=== PATIENT | male | born 1995 | race African-American/Black ===

== ENCOUNTER 2019-05-01 14:38 | Emergency (ER) | payer MEDICAID, OTHER ==
[~2019-05-01] VITALS: Ht 172.7 cm; Wt 70.0 kg
[~2019-05-01 14:38] MED LIST: CIPR-263; NONE REPORTED; PROIN3; QUET150T2
[2019-05-01 21:05] VITALS: BP 110/82
== END 2019-05-01 21:06 | disposition home or self-care (01) ==
LOC: ER 14:38
DX: J11.1 Influenza due to unidentified influenza virus with other respiratory manifestations (principal); R50.9 Fever, unspecified; J45.909 Unspecified asthma, uncomplicated
CPT/HCPCS: 99283

== ENCOUNTER 2020-01-11 07:57 | Emergency (ER) | payer MEDICAID ==
[~2020-01-11] VITALS: Ht 165.1 cm; Wt 57.0 kg
[2020-01-11] MEDS ORDERED: PIPERACILLIN/TAZ 3.375G PREMIX 50 ML IV ONE (08:45)
[2020-01-11] MEDS ORDERED: SODIUM CHLORIDE 0.9% 1,000 ML IV ONE (09:15)
[2020-01-11 09:32] LABS: BASOPHILS % 0.8 % (0.0-2.0); EOSINOPHILS % 3.6 % (0.0-5.0); HEMATOCRIT. 44.5 % (42.0-52.0); LYMPHOCYTES % 20.9 % (20.0-50.0); MEAN CORPUSCULAR HEMOGLOBIN 28.7 pg (28.0-32.0); MEAN CORPUSCULAR VOLUME 85.3 fL (80.0-94.0); MEAN PLATELET VOLUME 6.9 fl (7.4-10.4); MONOCYTES % 8.7 % (2.0-8.0); PLATELET 321 x1000/uL (130-400); RED BLOOD CELL COUNT 5.22 mill/uL (4.7-6.1); RED CELL DISTRIBUTION WIDTH 13.5 % (11.6-14.6)
[2020-01-11 09:40] LABS: CHLORIDE 106 mEq/L (98-107)
[2020-01-11] MEDS ORDERED: ACETAMINOPHEN 325MG TABLET PO ONE (09:45)
[2020-01-11] MEDS ORDERED: IOHEXOL-300 100 ML BOTTLE ONE (10:35)
[2020-01-11 16:09] VITALS: BP 120/85
== END 2020-01-11 16:36 | disposition short-term general hospital (02) ==
LOC: ER 08:17
DX: H60.02 Abscess of left external ear (principal); F12.10 Cannabis abuse, uncomplicated; F15.10 Other stimulant abuse, uncomplicated; H92.02 Otalgia, left ear; L53.9 Erythematous condition, unspecified; F11.10 Opioid abuse, uncomplicated; Z79.899 Other long term (current) drug therapy
CPT/HCPCS: 36415; 70481; 80053; 85025; 96365; 99285; J2543; J7030; Q9967

== ENCOUNTER 2020-01-28 19:51 | Emergency (ER) | payer MEDICAID ==
[~2020-01-28] VITALS: Ht 172.7 cm; Wt 60.0 kg
[2020-01-28 19:54] VITALS: BP 111/69
== END 2020-01-28 20:51 | disposition left against medical advice (07) ==
LOC: ER 19:51
DX: H61.002 Unspecified perichondritis of left external ear (principal); J45.909 Unspecified asthma, uncomplicated
CPT/HCPCS: 99281

== ENCOUNTER 2023-06-30 12:20 | Emergency (ER) | payer MEDICAID ==
[~2023-06-30] VITALS: Ht 170.2 cm; Wt 64.4 kg
[2023-06-30 12:29] VITALS: O2SAT 100
[2023-06-30] MEDS ORDERED: AMOX1TAB16 MT (14:05)
[2023-06-30 15:16] VITALS: BP 112/64; PULSE 78; RESP 14; TEMP 98
== END 2023-06-30 15:20 | disposition home or self-care (01) ==
LOC: ER 12:31
DX: J32.9 Chronic sinusitis, unspecified (principal)
CPT/HCPCS: 71045; 99283

== ENCOUNTER 2023-07-28 08:46 | Emergency (ER) | payer MEDICAID ==
[~2023-07-28] VITALS: Ht 167.6 cm; Wt 60.0 kg
[~2023-07-28 08:46] MED LIST changes: +AMOX1TAB16 MT
[2023-07-28 09:04] VITALS: BP 120/69; PULSE 94; RESP 16; TEMP 98.2; O2SAT 98
[2023-07-28 09:43] LABS: BASOPHILS % 0.7 % (0.0-2.0); EOSINOPHILS % 0.8 % (0.0-5.0); HEMATOCRIT. 43.2 % (42.0-52.0); HEMOGLOBIN. 14.5 g/dL (14.0-18.0); LYMPHOCYTES % 19.1 % (20.0-50.0); MEAN CORPUSCULAR HEMOGLOBIN 28.4 pg (28.0-32.0); MEAN CORPUSCULAR HGB CONC 33.6 g/dL (31.0-37.0); MEAN CORPUSCULAR VOLUME 84.4 fL (80.0-94.0); MEAN PLATELET VOLUME 6.8 fl (7.4-10.4); MONOCYTES % 10.2 % (2.0-8.0); NEUTROPHILS % 69.2 % (40.0-76.0); PLATELET 349 x1000/uL (130-400); RED BLOOD CELL COUNT 5.12 mill/uL (4.7-6.1); RED CELL DISTRIBUTION WIDTH 13.4 % (11.6-14.6); WHITE BLOOD COUNT 7.2 x1000/uL (4.5-11.0)
[2023-07-28 09:50] LABS: CHLORIDE 101 mEq/L (98-107); POTASSIUM 3.8 mEq/L (3.5-5.1); SODIUM 134 mEq/L (136-145)
[2023-07-28 09:51] LABS: CALCIUM 9.4 mg/dL (8.7-10.4); CARBON DIOXIDE 24 mEq/L (21-32)
[2023-07-28 09:56] LABS: GLUCOSE 81 mg/dL (70-105); UREA NITROGEN BLOOD 13 mg/dL (9-23)
[2023-07-28 09:58] LABS: ALANINE AMINOTRANSFERASE 94 IU/L (10-49); ALBUMIN 4.7 g/dL (3.2-4.8); ASPARTATE AMINOTRANSFERASE 122 IU/L (<34)
[2023-07-28 09:59] LABS: BILIRUBIN TOTAL 1.2 mg/dL (0.1-1.0); PROTEIN TOTAL 7.6 g/dL (6.0-8.3)
[2023-07-28 10:02] LABS: TROPONIN I HIGH SENSITIVITY < 4 ng/L (3.0-53)
[2023-07-28] MEDS ORDERED: IBUP-2030 MT (11:39)
== END 2023-07-28 11:58 | disposition home or self-care (01) ==
LOC: ER 08:54
DX: R07.89 Other chest pain (principal); J45.909 Unspecified asthma, uncomplicated; Z59.00 Homelessness unspecified
CPT/HCPCS: 36415; 71045; 80053; 84484; 85025; 93005; 99285

== ENCOUNTER 2023-08-30 07:41 | Emergency (ER) | payer MEDICAID ==
[~2023-08-30] VITALS: Ht 162.6 cm; Wt 58.0 kg
[~2023-08-30 07:41] MED LIST changes: +IBUP-2030 MT
[2023-08-30 07:45] VITALS: BP 105/73; PULSE 103; RESP 18; TEMP 98.2; O2SAT 99
== END 2023-08-30 09:35 | disposition home or self-care (01) ==
LOC: ER 07:41
DX: M79.604 Pain in right leg (principal); J45.909 Unspecified asthma, uncomplicated; Z59.00 Homelessness unspecified
CPT/HCPCS: 99281

== ENCOUNTER 2023-10-09 18:07 | Emergency (ER) | payer MEDICAID ==
[~2023-10-09] VITALS: Ht 172.7 cm; Wt 58.0 kg
[2023-10-09 18:24] VITALS: O2SAT 97
[2023-10-09 19:23] LABS: BASOPHILS % 0.3 % (0.0-2.0); EOSINOPHILS % 3.6 % (0.0-5.0); HEMATOCRIT. 41.6 % (42.0-52.0); HEMOGLOBIN. 14.2 g/dL (14.0-18.0); LYMPHOCYTES % 20.3 % (20.0-50.0); MEAN CORPUSCULAR HGB CONC 34.1 g/dL (31.0-37.0); MEAN CORPUSCULAR VOLUME 85.1 fL (80.0-94.0); MEAN PLATELET VOLUME 7.5 fl (7.4-10.4); MONOCYTES % 7.9 % (2.0-8.0); NEUTROPHILS % 67.9 % (40.0-76.0); PLATELET 288 x1000/uL (130-400); RED BLOOD CELL COUNT 4.89 mill/uL (4.7-6.1); RED CELL DISTRIBUTION WIDTH 13.8 % (11.6-14.6)
[2023-10-09 19:26] LABS: CHLORIDE 104 mEq/L (98-107); POTASSIUM 4.1 mEq/L (3.5-5.1); SODIUM 137 mEq/L (136-145)
[2023-10-09 19:27] LABS: CALCIUM 9.3 mg/dL (8.7-10.4); CARBON DIOXIDE 30 mEq/L (21-32)
[2023-10-09 19:32] LABS: GLUCOSE 76 mg/dL (70-105); UREA NITROGEN BLOOD 15 mg/dL (9-23)
[2023-10-09 19:34] LABS: ACETAMINOPHEN < 2 ug/mL (10-30)
[2023-10-09 19:37] LABS: ETHANOL BLOOD < 10 mg/dL (<10); THYROID STIMULATING HORMONE 0.59 uIU/mL (0.55-4.78)
[2023-10-10 04:04] LABS: *AMPHETAMINES SCREEN URINE PRESUMPTIVE POSITIVE (NEGATIVE); *BARBITURATES SCREEN URINE NEGATIVE (NEGATIVE); *BENZODIAZEPINES SCREEN URINE NEGATIVE (NEGATIVE); *COCAINE SCREEN URINE NEGATIVE (NEGATIVE); METHADONE URINE SCREEN NEGATIVE (NEGATIVE); OPIATES URINE SCREEN NEGATIVE (NEGATIVE); PHENCYCLIDINE URINE SCREEN PRESUMTIVE POSITIVE (NEGATIVE)
[2023-10-10 04:05] LABS: CANNABINOID URINE SCREEN NEGATIVE (NEGATIVE); ECSTASY MDMA SCREEN URINE NEGATIVE (NEGATIVE)
[2023-10-10 04:07] LABS: CLARITY URINE CLEAR (CLEAR); COLOR URINE DARK YELLOW (YELLOW); GLUCOSE URINE NEGATIVE (NEGATIVE); KETONES URINE NEGATIVE (NEGATIVE); LEUKOCYTE ESTERASE URINE NEGATIVE (NEGATIVE); NITRITE URINE NEGATIVE (NEGATIVE); OCCULT BLOOD URINE NEGATIVE (NEGATIVE); PH URINE 5.5 (4.5-8.0); PROTEIN URINE NEGATIVE (NEGATIVE); SPECIFIC GRAVITY URINE 1.033 (1.005-1.030)
[2023-10-10 13:55] VITALS: BP 121/67; PULSE 69; RESP 18; TEMP 98.3
== END 2023-10-10 14:08 | disposition home or self-care (01) ==
LOC: ER 18:07
DX: R45.851 Suicidal ideations (principal); J45.909 Unspecified asthma, uncomplicated; Z20.822 Contact with and (suspected) exposure to COVID-19; Z79.899 Other long term (current) drug therapy
CPT/HCPCS: 36415; 80048; 80305; 80307; 80320; 80329; 81003; 84443; 85025; 87426; 99285; G0480

== ENCOUNTER 2023-11-08 16:40 | Emergency (ER) | payer MEDICAID ==
[~2023-11-08] VITALS: Ht 167.6 cm; Wt 60.0 kg
[2023-11-08 16:49] VITALS: BP 113/79; PULSE 76; RESP 20; TEMP 97.9; O2SAT 99
[2023-11-08] MEDS ORDERED: IBUP-1523 MT (19:43)
[2023-11-08] MEDS ORDERED: TOPUD MT (19:43)
[2023-11-08] MEDS ORDERED: TOLN30CR17 TP (19:43)
[2023-11-14] MEDS ORDERED: OLAN5TAB74 PO (17:25)
[2023-11-14] MEDS ORDERED: MIRT-89 PO (17:25)
== END 2023-11-08 19:53 | disposition home or self-care (01) ==
LOC: ER 16:40
DX: S90.822A Blister (nonthermal), left foot, initial encounter (principal); S90.821A Blister (nonthermal), right foot, initial encounter; J45.909 Unspecified asthma, uncomplicated; Z59.00 Homelessness unspecified; Z79.899 Other long term (current) drug therapy; X58.XXXA Exposure to other specified factors, initial encounter; Y93.89 Activity, other specified; Y92.89 Other specified places as the place of occurrence of the external cause; Y99.8 Other external cause status
CPT/HCPCS: 99282